=== PATIENT | female | born 1990 ===

== ENCOUNTER 2016-12-06 11:15 | Emergency (ER) | payer MEDICAID ==
[2016-12-06 11:30] VITALS: BP 92/58
[2016-12-06] MEDS ORDERED: Sodium Chloride 0.9% 10 ML Syringe FLUSH PRN (13:11)
[2016-12-06] MEDS ORDERED: Sodium Chloride 0.9% 1,000 ML IV ONE (13:11)
--- NOTE | 2016-12-06 13:17 | EDM.PDOC ---
ED HPI GENERAL MEDICAL PROBLEM - General Chief Complaint: Syncope Stated Complaint: 13 WEEKS PREG AND SYNCOPE SENT FROM [facility] Time Seen by Provider: 12/06/16 12:04 Source of Information: Reports: Patient History Limitations: Reports: No Limitations - History of Present Illness INITIAL COMMENTS - FREE TEXT/NARRATIVE: Patient is a 26-year-old female who presents to the ED complaining of presyncopal event. Patient states this morning she awoke at 545 and was getting breakfast ready. At approximate 620 she felt exhausted and developed numbness and tingling sensation from her head to her toes. States her breathing rate did increase. She sat down with resolution of the dizziness. She was concerned maybe her blood sugar was low but she had no prior history of similar symptoms. She ate oatmeal plus yogurt and was doing okay. She was sitting for approximately half hour prior to standing up when she developed presyncopal episode. She became dizzy and sat right back down. She does have a history of being dizzy with position changes. Symptoms are short-lived. She states the tingling subsided during this time. She did not pass out. With onset of symptoms she did call 911. Upotly-[id number]-win was concerned patient may be dehydrated. Patient does complain of some dryness to her mouth. States she has been breast-feeding and is currently 13 weeks . Patient was take to the [facility] ER with labs obtained. No concerning finding. Has had similar symptoms as such with heat exhaustion. She's not been exposed to heat or over exerted herself recently. She questions if it was not related to anxiety attack with being home with her [id number] child. She did have a ultrasound obtained at 9 weeks with no concerning findings. She does have a slight headache measured 4 out of 10 located to the frontal aspect of her head. This is not described as a worse headache of her life. Headache has been present during this . She denies any vision changes, chest pain, SOB, dull pain, dysuria, abnormal vaginal discharge, increased swelling to her lower extremities , fever, cough, abdominal cramping, or any additional complaints. There is no vaginal bleeding or abnormal vaginal discharge. Currently with standing she has no dizziness. Patient does have a past medical history of Lyme disease treated in 2013. In addition she has a history of anxiety and headache. She takes Diclegis for morning sickness. She is also taking vitamins and Tylenol. She does not smoke, utilize alcohol, or use recreational drugs. - Related Data Allergies Allergy/AdvReac Type Severity Reaction Status Date / Time No Known Allergies Allergy Verified 01/07/15 11:53 CDT Home Meds: Home Meds PNV95/Ferrous Fumarate/FA [ Multivitamins] 1 each PO DAILY 01/07/15 [ History] Past Medical History [employer] History: Reports: Psychiatric History: Reports: Anxiety - Infectious Disease History Infectious Disease History: Reports: Other (See Below) Other Infectious Disease History: had Lymes disease 2013 Social & Family History - Tobacco Use Smoking Status *Q: Never Smoker - Caffeine Use Caffeine Use: Reports: Soda - Recreational Drug Use Recreational Drug Use: No ED ROS GENERAL - Review of Systems Review Of Systems: ROS reveals no pertinent complaints other than HPI. - Physical Exam Exam: See Below Exam Limited By: No Limitations General Appearance: Alert, WD/WN, No Apparent Distress Eye Exam: Bilateral Eye: EOMI, PERRL Ears: Hearing Grossly Normal Nose: Normal Inspection, Normal Mucosa Throat/Mouth: Normal Inspection, Normal Voice, No Airway Compromise, Other (Dry mucosa) Head Exam: Atraumatic, Normocephalic Neck: Normal Inspection, Supple, Non-Tender, Full Range of Motion Respiratory/Chest: No Respiratory Distress, Lungs Clear, Normal Breath Sounds, No Accessory Muscle Use, Chest Non-Tender Cardiovascular: Normal Peripheral Pulses, Regular Rate, Rhythm, No Murmur GI/Abdominal: Normal Bowel Sounds, Soft, No Organomegaly, No Distention, Tender (Mild tenderness to the ambulatory region with palpation.) (Female) Exam: Deferred Neuro Exam (Abbreviated): Alert, Oriented, CN II-XII Intact, Normal Cognition, Normal Gait, No Motor/Sensory Deficits Back Exam: Normal Inspection. No: CVA Tenderness (L), CVA Tenderness (R) Extremities: Normal Inspection, Normal Range of Motion, Non-Tender, No Pedal Edema, Normal Capillary Refill Psychiatric: Normal Affect, Normal Mood Skin Exam: Warm, Dry, Intact, Normal Color Course - Vital Signs Last Recorded V/S: Last Vital Signs Temp 98.0 F 12/06/16 11:29 Pulse 91 12/06/16 11:29 Resp 20 12/06/16 11:29 BP 92/58 L 12/06/16 11:29 Pulse Ox 100 12/06/16 11:29 Orthostatic Blood Pressure [ 102/73 Standing] Orthostatic Blood Pressure [ 92/58 Sitting] - Orders/Labs/Meds Orders: Active Orders 24 hr Category Date Time Status EKG Documentation Completion [RC] STAT Care 12/06/16 12:25 Active Peripheral IV Care [RC] . DIRECTED Care 12/06/16 13:11 Active Peripheral IV Insertion Adult [OM.PC] Stat Oth 12/06/16 13:11 Ordered Labs: Laboratory Tests 12/06/16 Range/Units 12:40 HCG, Quant 70748.0 mIU/mL Meds: Medications Discontinued Medications Generic Name Dose Route Start Last Admin Trade Name Freq PRN Reason Stop Dose Admin Sodium Chloride 1,000 mls @ 999 mls/hr 12/06/16 13:11 12/06/16 13:17 Normal Saline IV 12/06/16 14:11 999 mls/hr ONETIME ONE Administration Sodium Chloride 10 ml 12/06/16 13:11 12/06/16 13:18 Saline Flush FLUSH 10 ml ASDIRECTED PRN Administration Keep Vein Open - Re-Assessments/Exams Free Text/Narrative Re-Assessment/Exam: Reviewed labs obtained today at [facility]. White blood cell count 10.0, hemoglobin 11.8, platelet count 252, no additional concerning findings. Chemistry panel obtain indicated glucose 88, sodium 138, potassium 3.3 which is normal for the patient. She eats a banana daily. AG is 14, albumin 2.7 UA revealed only trace blood. Urine microscopic reflex moderate number of epithelial cells. Nursing staff brought to my attention that the patient's blood pressure was 90/ systolic. Orthostatics were negative. Patient has no symptoms with standing but states she feels dehydrated. Mouth is dry. She's had poor oral intake of fluids. Will obtain a peripheral IV with normal saline 1 L bolus and also quantitative hCG. heart tones were 166. 12/06/16 14:53 Quantitative HC 978. Reassessment, patient has no symptoms currently. Blood pressure trending upward. She is ready to be discharged home. Departure - Departure Time of Disposition: 14:55 Disposition: Home, Self-Care 01 Condition: Good Clinical Impression: Pre-syncope, Panic attack as reaction to stress, Dehydration - Discharge Information Instructions: Near-Syncope, [id number], Dehydration, Adult, [id number] Referrals: Esme Morgan, [employer] [Primary Care Provider] - Forms: ED Department Discharge Additional Instructions: Etiology of current complaint secondary to panic attack brought on by increased stress recently. Oral mucosa was dry thus suggest pushing the fluids to ensure adequate oral intake of fluids. Urine should be straw colored. Dizziness with position changes is a chronic issue for you. Suggest slowing down when changing body positions. If you become dizzy and feel like you are going going to pass out again stop and lay down allowing yourself to obtain equilibrium. If you start to breathe fast and notice numbness and tingling to your body, control your breathing rate. Breathe in through your nose and out your mouth. Hold your breath for at least 5 seconds between each breath. Follow-up with your PCP this coming week as needed. Return to ED for any new or worsening symptoms. - My Orders Last 24 Hours: My Active Orders 12/06/16 12:25 EKG Documentation Completion [RC] STAT 12/06/16 13:11 Peripheral IV Care [RC] . DIRECTED Peripheral IV Insertion Adult [OM.PC] Stat - Assessment/Plan Last 24 Hours: My Active Orders 12/06/16 12:25 EKG Documentation Completion [RC] STAT 12/06/16 13:11 Peripheral IV Care [RC] . DIRECTED Peripheral IV Insertion Adult [OM.PC] Stat
== END 2016-12-06 15:25 | disposition home or self-care (01) ==
LOC: JD.ED 11:15
DX: O99.89 Other specified diseases and conditions complicating pregnancy, childbirth and the puerperium (principal); R55 Syncope and collapse; O99.341 Other mental disorders complicating pregnancy, first trimester; F43.0 Acute stress reaction; O99.281 Endocrine, nutritional and metabolic diseases complicating pregnancy, first trimester; E86.0 Dehydration; Z3A.13 13 weeks gestation of pregnancy
CPT/HCPCS: 36415; 84702; 93005; 96360; 99284; J7040; J7050